=== PATIENT | female | born 1970 | race Asian ===

== ENCOUNTER 2025-05-24 16:45 | Emergency (ER) | payer OTHER, BC ==
[~2025-05-24] VITALS: Ht 157.5 cm; Wt 59.1 kg
[2025-05-24] MEDS ORDERED: LISI-893 PO (16:54)
[2025-05-24 16:56] VITALS: TEMP 97.4
[2025-05-24 17:41] VITALS: BP 115/78; PULSE 84; RESP 17; O2SAT 98
[2025-05-24] MEDS ORDERED: AMOX-457 PO (18:03)
[2025-05-24] MEDS: PERTUSS(ACELL),DIPH,TET/PF 0.5 ML SYRINGE [ADULT] IM. ONE (18:25)
[2025-05-24] MEDS: BACITRACIN 0.9 GM PACKET OINTMENT TP ONE (18:25)
== END 2025-05-24 18:31 | disposition home or self-care (01) ==
LOC: EMS 16:59
DX: S81.852A Open bite, left lower leg, initial encounter (principal); I10 Essential (primary) hypertension; Z79.899 Other long term (current) drug therapy; W54.0XXA Bitten by dog, initial encounter; Y93.89 Activity, other specified; Y92.89 Other specified places as the place of occurrence of the external cause; Y99.8 Other external cause status
CPT/HCPCS: 90471; 90715; 99283